=== PATIENT | female | born 1940 | race Caucasian/White ===

== ENCOUNTER 2019-01-16 11:03 | Outpatient (CLI) ==
[2013-11-12 20:12] VITALS: BMI 19.4
== END 2019-01-16 11:04 | disposition home or self-care (01) ==
LOC: NONPT 11:03
PROVIDERS: ATTEND Internal Medicine
DX: E11.9 Type 2 diabetes mellitus without complications (principal)
CPT/HCPCS: 81001; 87086; 87186